=== PATIENT | female | born 1985 | race Caucasian/White ===

== ENCOUNTER → 2024-03-24 14:48 | Outpatient (REF) | payer OTHER, SELFPAY | LOC: PNTC 14:48 | PROVIDERS: ATTENDING PHYSICIAN Obstetrics & Gynecology | DX: O09.529 Supervision of elderly multigravida, unspecified trimester (principal); E06.3 Autoimmune thyroiditis; Q05.9 Spina bifida, unspecified; O34.219 Maternal care for unspecified type scar from previous cesarean delivery; R76.0 Raised antibody titer | CPT/HCPCS: 76816 ==

== ENCOUNTER → 2024-04-21 14:59 | Outpatient (REF) | payer OTHER, SELFPAY | LOC: PNTC 14:59 | PROVIDERS: ATTENDING PHYSICIAN Obstetrics & Gynecology | DX: O09.519 Supervision of elderly primigravida, unspecified trimester (principal); O99.280 Endocrine, nutritional and metabolic diseases complicating pregnancy, unspecified trimester; Z85.850 Personal history of malignant neoplasm of thyroid | CPT/HCPCS: 76816 ==

== ENCOUNTER 2024-05-09 12:46 | Observation (INO) | payer OTHER, SELFPAY ==
[2024-05-09 13:19] VITALS: BP 126/69; BMI 30.8
[2024-05-09] MEDS: LR 1000 IV (13:30)
[2024-05-09] MEDS: LR 500 IV (13:30)
[2024-05-09] MEDS: TYLENOL 1000 MG PO (13:47)
[2024-05-09 14:04] LABS: % Basophils 0.3 % (0-2); % Eosinophils 2.3 % (0-6); % Immature Granulocytes 0.9 % (0-0.5); % Lymphocytes 17.9 % (20.5-51.1); % Neutrophils 71.6 % (42.2-75.2); Absolute Eosinophils 0.2 10^3/uL (0-0.7); Absolute Immature Granulocytes 0.1 10^3/uL (0-0.05); Absolute Lymphocytes 1.4 10^3/uL (1.2-3.4); Absolute Monocytes 0.6 10^3/uL (0.1-0.6); Absolute Neutrophils 5.7 10^3/uL (1.4-6.5); Hematocrit 34.1 % (37.0-47.0); Hemoglobin 12.2 g/dL (12.0-16.0); Mean Corp Hgb Conc. 35.8 g/dL (33.0-37.0); Mean Corpuscular Hgb 31.9 pg (27.0-31.0); Mean Platelet Volume 11.6 fL (7.4-10.4); Nucleated Red Blood Cells % 0 %; Platelet Count 161 10^3/uL (130-400); Red Blood Cell Count 3.83 10^6/uL (4.20-5.40); Red Cell Dist. Width 13.4 % (11.5-14.5); White Blood Cell Count 7.9 10^3/uL (4.8-10.8)
[2024-05-09 14:16] LABS: ALT (SGPT) 18 U/L (0-35); AST (SGOT) 20 U/L (14-36); Albumin 3.4 g/dl (3.5-5.0); Alkaline Phosphatase 59 U/L (38-126); Blood Urea Nitrogen 11 mg/dl (7-17); Calcium 9.7 mg/dl (8.4-10.2); Carbon Dioxide 23 mmol/L (22-30); Chloride 105 mmol/L (98-107); Estimated Creatinine Clearance 120 ml/min; Glucose 111 mg/dl (70-99); Sodium 135 mmol/L (135-145); Total Bilirubin 0.6 mg/dl (0.2-1.3); Total Protein 6.1 g/dl (6.3-8.2); Uric Acid 4.1 mg/dl (2.5-6.2); eGFR > 60.00
[2024-05-09 14:28] LABS: Protein/creatinine Ratio 0.5; Urine Protein 13 mg/dl
[2024-05-09] MEDS: REGLAN 10 MG IV (14:38)
[2024-05-09 15:59] LABS: Urine Albumin Negative (Neg - Trace); Urine Bilirubin Negative (Negative); Urine Character Clear (Clear); Urine Color Yellow; Urine Glucose Negative (Negative); Urine Ketone Negative (Negative); Urine Leukocyte Negative (Negative); Urine Nitrite Negative (Negative); Urine Occult Blood Negative (Negative); Urine Urobilinogen Negative (Neg - 1+)
[2024-05-09] MEDS: MAXALT MLT (ORALLY DISINTEGRATING) 10 MG PO (15:59)
== END 2024-05-09 17:32 | disposition home or self-care (01) ==
LOC: LDRP 12:46
PROVIDERS: ADMITTING PHYSICIAN Obstetrics & Gynecology; FAMILY PHYSICIAN Family Medicine
DX: G43.909 Migraine, unspecified, not intractable, without status migrainosus (principal); R10.11 Right upper quadrant pain; Z3A.30 30 weeks gestation of pregnancy; O99.283 Endocrine, nutritional and metabolic diseases complicating pregnancy, third trimester; E06.3 Autoimmune thyroiditis; H53.8 Other visual disturbances; F90.9 Attention-deficit hyperactivity disorder, unspecified type; M32.9 Systemic lupus erythematosus, unspecified; Z86.19 Personal history of other infectious and parasitic diseases; Z88.1 Allergy status to other antibiotic agents; Z86.14 Personal history of Methicillin resistant Staphylococcus aureus infection
CPT/HCPCS: 80053; 81003; 82570; 84156; 84550; 85025; 86850; 86900; 86901; 87070; G0378

== ENCOUNTER 2024-05-15 13:19 | Observation (INO) | payer OTHER, SELFPAY ==
[2024-05-15 13:33] VITALS: BP 115/65; BMI 31.3
[2024-05-15 14:04] LABS: Hematocrit 36.4 % (37.0-47.0); Mean Corp Hgb Conc. 35.7 g/dL (33.0-37.0); Mean Corpuscular Hgb 32.3 pg (27.0-31.0); Mean Corpuscular Volume 90.3 fL (81.0-99.0); Mean Platelet Volume 11.4 fL (7.4-10.4); Platelet Count 182 10^3/uL (130-400); Red Blood Cell Count 4.03 10^6/uL (4.20-5.40); Red Cell Dist. Width 13.3 % (11.5-14.5); White Blood Cell Count 10.1 10^3/uL (4.8-10.8)
[2024-05-15] MEDS: MAXALT MLT (ORALLY DISINTEGRATING) 10 MG PO (14:04)
[2024-05-15 14:21] LABS: ALT (SGPT) 17 U/L (0-35); AST (SGOT) 17 U/L (14-36); Albumin 3.6 g/dl (3.5-5.0); Alkaline Phosphatase 70 U/L (38-126); Blood Urea Nitrogen 10 mg/dl (7-17); Carbon Dioxide 20 mmol/L (22-30); Chloride 104 mmol/L (98-107); Estimated Creatinine Clearance 121 ml/min; Glucose 92 mg/dl (70-99); Potassium 4.3 mmol/L (3.5-5.1); Sodium 136 mmol/L (135-145); Total Bilirubin 0.4 mg/dl (0.2-1.3); Total Protein 6.5 g/dl (6.3-8.2); eGFR > 60.00
[2024-05-15] MEDS: REGLAN 10 MG IV (15:05)
== END 2024-05-15 15:44 | disposition home or self-care (01) ==
LOC: LDRP 13:19
PROVIDERS: ADMITTING PHYSICIAN Obstetrics & Gynecology
DX: G43.909 Migraine, unspecified, not intractable, without status migrainosus (principal); H53.8 Other visual disturbances; R11.0 Nausea; O99.283 Endocrine, nutritional and metabolic diseases complicating pregnancy, third trimester; O36.8130 Decreased fetal movements, third trimester, not applicable or unspecified; O09.523 Supervision of elderly multigravida, third trimester; E06.3 Autoimmune thyroiditis; Z3A.31 31 weeks gestation of pregnancy; M32.9 Systemic lupus erythematosus, unspecified; F90.9 Attention-deficit hyperactivity disorder, unspecified type; O99.343 Other mental disorders complicating pregnancy, third trimester; F41.9 Anxiety disorder, unspecified; Z88.1 Allergy status to other antibiotic agents; Z86.14 Personal history of Methicillin resistant Staphylococcus aureus infection
CPT/HCPCS: 76818; 76816; 80053; 85027; G0378

== ENCOUNTER → 2024-05-19 15:10 | Outpatient (REF) | payer OTHER, SELFPAY | LOC: PNTC 15:10 | PROVIDERS: ATTENDING PHYSICIAN Obstetrics & Gynecology | DX: O09.529 Supervision of elderly multigravida, unspecified trimester (principal); O99.280 Endocrine, nutritional and metabolic diseases complicating pregnancy, unspecified trimester | CPT/HCPCS: 76816 ==

== ENCOUNTER → 2024-06-02 10:11 | Outpatient (REF) | payer OTHER, SELFPAY | LOC: PNTC 10:11 | PROVIDERS: ATTENDING PHYSICIAN Obstetrics & Gynecology | DX: O09.519 Supervision of elderly primigravida, unspecified trimester (principal); O99.280 Endocrine, nutritional and metabolic diseases complicating pregnancy, unspecified trimester | CPT/HCPCS: 59025; 76815 ==

== ENCOUNTER 2024-06-03 17:53 | Observation (INO) | payer OTHER, SELFPAY ==
[2024-06-03 18:06] VITALS: BP 120/76; BMI 32.6
[2024-06-03 19:34] LABS: Hematocrit 37.6 % (37.0-47.0); Hemoglobin 13.1 g/dL (12.0-16.0); Mean Corp Hgb Conc. 34.8 g/dL (33.0-37.0); Mean Corpuscular Hgb 31.7 pg (27.0-31.0); Mean Platelet Volume 10.8 fL (7.4-10.4); Platelet Count 158 10^3/uL (130-400); Red Blood Cell Count 4.13 10^6/uL (4.20-5.40); Red Cell Dist. Width 13.6 % (11.5-14.5); White Blood Cell Count 10.9 10^3/uL (4.8-10.8)
[2024-06-03 19:48] LABS: INR 0.88; PT 12.4 Sec (11.4-14.6)
[2024-06-03 19:49] LABS: Fibrinogen 421 MG/DL (199-459)
[2024-06-03] MEDS: TYLENOL 1000 MG PO (20:58)
[2024-06-04] MEDS: TYLENOL 1000 MG PO (04:57)
== END 2024-06-04 11:18 | disposition home or self-care (01) ==
LOC: LDRP 17:53
PROVIDERS: ADMITTING PHYSICIAN Obstetrics & Gynecology
DX: M79.671 Pain in right foot (principal); V49.49XA Driver injured in collision with other motor vehicles in traffic accident, initial encounter; Y93.89 Activity, other specified; Y92.413 State road as the place of occurrence of the external cause; R10.9 Unspecified abdominal pain; O09.523 Supervision of elderly multigravida, third trimester; Z3A.34 34 weeks gestation of pregnancy; O99.283 Endocrine, nutritional and metabolic diseases complicating pregnancy, third trimester; E06.3 Autoimmune thyroiditis; Q05.9 Spina bifida, unspecified; M32.9 Systemic lupus erythematosus, unspecified; F90.9 Attention-deficit hyperactivity disorder, unspecified type; Z86.19 Personal history of other infectious and parasitic diseases; Z88.1 Allergy status to other antibiotic agents; Z86.14 Personal history of Methicillin resistant Staphylococcus aureus infection
CPT/HCPCS: 73620; 76815; 85027; 85384; 85460; 85610; 85730; 86850; 86900; 86901; G0378

== ENCOUNTER → 2024-06-09 09:30 | Outpatient (REF) | payer OTHER, SELFPAY | LOC: PNTC 09:30 | PROVIDERS: ATTENDING PHYSICIAN Obstetrics & Gynecology | DX: E06.3 Autoimmune thyroiditis (principal); O9A.119 Malignant neoplasm complicating pregnancy, unspecified trimester; O09.529 Supervision of elderly multigravida, unspecified trimester | CPT/HCPCS: 59025; 76815 ==

== ENCOUNTER 2024-06-10 21:54 | Observation (INO) | payer OTHER, SELFPAY ==
[2024-06-10 22:06] VITALS: BMI 32.4
[2024-06-10] MEDS: LR 1000 IV ×2 (22:45→23:54)
[2024-06-10 22:55] VITALS: BP 104/57
[2024-06-10 23:34] LABS: Hematocrit 36.2 % (37.0-47.0); Hemoglobin 12.6 g/dL (12.0-16.0); Mean Corp Hgb Conc. 34.8 g/dL (33.0-37.0); Mean Corpuscular Hgb 31.5 pg (27.0-31.0); Mean Corpuscular Volume 90.5 fL (81.0-99.0); Mean Platelet Volume 11.3 fL (7.4-10.4); Platelet Count 172 10^3/uL (130-400); Red Cell Dist. Width 13.3 % (11.5-14.5)
[2024-06-10 23:40] LABS: ALT (SGPT) 16 U/L (0-35); AST (SGOT) 18 U/L (14-36); Albumin 3.5 g/dl (3.5-5.0); Alkaline Phosphatase 88 U/L (38-126); Blood Urea Nitrogen 13 mg/dl (7-17); Calcium 9.4 mg/dl (8.4-10.2); Carbon Dioxide 22 mmol/L (22-30); Chloride 104 mmol/L (98-107); Estimated Creatinine Clearance 124 ml/min; Glucose 89 mg/dl (70-99); Sodium 133 mmol/L (135-145); Total Bilirubin 0.5 mg/dl (0.2-1.3); Total Protein 6.3 g/dl (6.3-8.2); eGFR > 60.00
[2024-06-11] LABS: Urine Albumin Negative (Neg - Trace); Urine Bilirubin Negative (Negative); Urine Character Clear (Clear); Urine Color Yellow; Urine Glucose Negative (Negative); Urine Ketone Negative (Negative); Urine Leukocyte Negative (Negative); Urine Nitrite Negative (Negative); Urine Occult Blood Negative (Negative); Urine Urobilinogen Negative (Neg - 1+)
== END 2024-06-11 01:35 | disposition home or self-care (01) ==
LOC: LDRP 21:54
PROVIDERS: ADMITTING PHYSICIAN Obstetrics & Gynecology
DX: O47.03 False labor before 37 completed weeks of gestation, third trimester (principal); Z3A.35 35 weeks gestation of pregnancy; O09.523 Supervision of elderly multigravida, third trimester; O99.283 Endocrine, nutritional and metabolic diseases complicating pregnancy, third trimester; E06.3 Autoimmune thyroiditis; Z79.890 Hormone replacement therapy; Z88.1 Allergy status to other antibiotic agents
CPT/HCPCS: 80053; 81003; 85027; 86850; 86900; 86901; G0378

== ENCOUNTER → 2024-06-16 08:10 | Outpatient (REF) | payer OTHER, SELFPAY | LOC: PNTC 08:10 | PROVIDERS: ATTENDING PHYSICIAN Obstetrics & Gynecology | DX: O09.529 Supervision of elderly multigravida, unspecified trimester (principal); E06.3 Autoimmune thyroiditis; O99.280 Endocrine, nutritional and metabolic diseases complicating pregnancy, unspecified trimester | CPT/HCPCS: 59025; 76816 ==

== ENCOUNTER → 2024-06-24 07:59 | Outpatient (REF) | payer OTHER, SELFPAY | LOC: PNTC 07:59 | PROVIDERS: ATTENDING PHYSICIAN Obstetrics & Gynecology | DX: O09.519 Supervision of elderly primigravida, unspecified trimester (principal); O99.280 Endocrine, nutritional and metabolic diseases complicating pregnancy, unspecified trimester | CPT/HCPCS: 59025; 76815 ==

== ENCOUNTER → 2024-07-01 07:52 | Outpatient (REF) | payer OTHER, SELFPAY | LOC: PNTC 07:52 | PROVIDERS: ATTENDING PHYSICIAN Obstetrics & Gynecology | DX: O09.519 Supervision of elderly primigravida, unspecified trimester (principal); O99.280 Endocrine, nutritional and metabolic diseases complicating pregnancy, unspecified trimester; Z85.850 Personal history of malignant neoplasm of thyroid | CPT/HCPCS: 59025; 76815 ==

== ENCOUNTER 2024-07-06 05:34 | Inpatient (IN) | payer OTHER, SELFPAY ==
--- NOTE | 2024-07-05 12:43 | HPS.HSE ---
Family Physician
-
Family Physician: INTERVIEWE UNKNOWN - PT NOT
Chief Complaint
-
repeat
History of Present Illness
HPI: Patient is a 38yo with an EDC of 07/13 who will present for scheduled repeat section and bilateral salpingectomy on 07/06. She has no complaints. She denies contractions, VB or LOF. +FM.
ROS otherwise negative.
complications:
- Hx MRSA- culture negative 04/2024
- Proteinuria- 24hr urine 210
- Hx CSx2- wants bilateral salpingectomy
- Hypothyroidism- s/p thyroidectomy
- Advanced maternal age
- Spina bifida
- Lyme disease- received 30d of amoxicillin in January
- positive ANURADHA- follows w/ Rheum, no change in OB management
- LEEP- full term deliveries after
PMHx: ADHD, autoimmune disorder- +ANURADHA, thyroid disease, migraine
Meds: synthroid, zoloft
Surghx: appendectomy, CSx2, breast reduction, thyroidectomy, salivary gland removal, LEEP
All: erythromycin- anaphylaxis
Socialhx: denies tobacco, etoh, or illicit drug use
Famhx: mom w/ Graves
OBHx: CSx2, SABx5
labs: Blood type A+, Ab neg, Pap NILM neg HPV, rubella immune, RPR nonreactive, urine culture neg, HBsAg neg, HIV neg, GCCT neg, Hep C neg, A1C 5.2, NIPT neg, AFP neg, 1hr 124, GBS negative
Medical History
Past Medical History
Past Medical History: Reports Hypothyroidism
Past Surgical History: Reports Appendectomy and
Social History
Tobacco: Non-smoker
Alcohol: None
Drug: None
Family History
Family History: Not pertinent
Allergies / Home Medications
Allergies reflects when Allergies were last updated in [facility].
Home Medications with original date entered in [facility]
Allergy/Medication List:
Meds: synthroid, zoloft
All: erythromycin- anaphylaxis
Review of Systems
-
A 12 point ROS was completed and negative except as noted: Yes
Physical Exam
Physical Exam
General: Well Developed and Well Nourished
HEENT: NormoCephalic
Respiratory: Non Labored Respirations
Cardiac: Regular Rhythm
GI: Soft and Non Tender
Musculoskeletal: No Clubbing
Skin: Warm and Dry
Neuro: Awake and Alert
Psych: Calm
Impression/Plan
-
IMPRESSION:
Patient is a 38yo with an HERNESTO of 07/13 who presents for repeat section and bilateral salpingectomy
PLAN:
- Admission labs
- 2g of Ancef prior to incision for antibiotic prophylaxis
- Spinal anesthesia
- Patient counseled on risks of section and bilateral salpingectomy including bleeding, infection, damage to surrounding structures and need for future operations. She was also counseled on tubal regret and other alternate forms of
contraception. She is aware it is a permanent procedure and she will no longer be able to conceive children naturally. Consents were signed. She consented to a blood transfusion in case of emergency. Risks of transfusion reaction and infection with
blood transfusion discussed
[2024-07-06 05:37] VITALS: BMI 33.0
[2024-07-06 05:46] VITALS: BP 118/67
[2024-07-06] MEDS: LR 1000 IV ×2 (05:50→07:30)
[2024-07-06 06:38] LABS: Hematocrit 38.1 % (37.0-47.0); Hemoglobin 13.1 g/dL (12.0-16.0); Mean Corp Hgb Conc. 34.4 g/dL (33.0-37.0); Mean Corpuscular Hgb 31.7 pg (27.0-31.0); Mean Corpuscular Volume 92.3 fL (81.0-99.0); Mean Platelet Volume 11.9 fL (7.4-10.4); Platelet Count 163 10^3/uL (130-400); Red Blood Cell Count 4.13 10^6/uL (4.20-5.40); Red Cell Dist. Width 14.1 % (11.5-14.5); White Blood Cell Count 7.4 10^3/uL (4.8-10.8)
[2024-07-06] MEDS: BICITRA 30 ML PO (07:10)
[2024-07-06] MEDS: TYLENOL 1000 MG PO (07:10)
[2024-07-06] MEDS: ANCEF 10 IV (07:10)
[2024-07-06 09:14] LABS: Cord ABG Comment CORD BLOOD
[2024-07-06 09:18] LABS: B.E. Cord ABG -1.6 mMOL/L; O2 Saturation % Cord ABG 45.8 %; PCO2 Cord ABG 54 mmHg; PO2 Cord ABG 25 mmHg; pH Cord ABG 7.29
[2024-07-06 09:21] LABS: B.E. Cord ABG -3.1 mMOL/L; O2 Saturation % Cord ABG 15.5 %; PCO2 Cord ABG 65 mmHg; PO2 Cord ABG 14 mmHg; pH Cord ABG 7.21
[2024-07-06] MEDS: TORADOL 15 MG IV ×2 (15:13→21:29)
--- NOTE | 2024-07-06 17:47 | OR.RPT ---
Operative Report
Operative Report
Preop diagnosis: IUP @39.0, history section x2, desires permanent sterilization
Postop diagnosis: same, breech presentation
Procedure: Repeat low transverse section, bilateral salpingectomy
Surgeon: Carline
Anesthesia: Spinal Dr. Kothari
QBL: 255mL
Findings: Viable male born from complete breech presentation, with Apgars 8/8, weighing 8lb 3oz. Dense fascia with adhesions between rectus and fascia. Normal appearing uterus, fallopian tubes and ovaries.
Guardado: clear yellow
Complications: none
Counts correct times 2
Patient transferred to recovery in stable condition
Indication: Patient is a 38yo at 39.0 weeks who presented to Labor and Delivery for scheduled repeat section. She has a history of two prior sections. She has completed her family status and desires permanent sterilization.
She is aware it is a permanent procedure and she will no longer be able to conceive children naturally. Risks, benefits, and alternatives were discussed and consents were previously signed.
Procedure: Patient was taken to the operating room where spinal anesthesia was administered and found to be adequate. 2g of Ancef were given for infection prophylaxis. The abdomen was prepped with ChloraPrep. The patient was draped in the normal
sterile fashion. She was placed in the dorsal supine position with a left lateral tilt. A Pfannenstiel incision was made with a 10 blade and carried down to the fascia with a scalpel. Hemostasis achieved with Bovie. The fascia was incised and
dissected laterally with Fay scissors. The superior aspect of the fascia was grasped with Justin clamps. Adhesions between rectus and fascia noted. The underlying rectus fascia was sharply dissected with the Bovie and Fay scissors. In a similar
fashion the inferior aspect of the fascia was elevated with Justin clamps and the rectus muscle was dissected off with Fay scissors. The rectus muscles were down the midline to the level of the pubic symphysis with manual dissection. The
peritoneum was bluntly entered and extended with manual traction.
Razo retractor and bladder blade were placed revealing good visualization of the bladder. The vesicouterine peritoneum was identified. A thin lower uterine segment was noted. The lower uterine segment was incised with a scalpel. Clear amniotic
fluid noted at entry into the cavity. The uterine incision was extended bluntly with lateral and upward traction.
The fetus was in complete breech presentation. The feet were palpated and delivered gradually through the hysterotomy. Gentle fundal pressure was applied and the legs and body gradually delivered. Once the scapula could be seen, the baby was
gently rotated and both arms were delivered using the Lovset maneuver. Maintaining head flexion, the head delivered spontaneously. Delayed cord clamping was not performed per vendor analyst as was limp. The was handed off to the
vendor analyst. Cord gases and cord blood were collected. IV oxytocin was started to facilitate uterine contractions. The placenta was manually extracted. The uterus was exteriorized. Allis clamps were placed at the apices of the hysterotomy. The
inside of the uterus was wiped with a lap sponge to assure complete removal of placental membranes. Fundal massage was performed and uterus noted to be firm. The uterine incision was closed with 0 Vicryl in a running locked fashion. A horizontal
imbricating stitch was done on the hysterotomy. Oozing noted superior to the right apex of the hysterotomy. Two figure of eights were placed with 0 Vicryl to achieve hemostasis. The hysterotomy was inspected and noted to be hemostatic. Attention was
turned to the right fallopian tube. The right fallopian tube was followed out to the fimbriated end with Babcocks. The fallopian tube was removed in a stepwise fashion along the mesosalpinx using the Voyant device. Hemostasis was noted at the
salpingectomy site. The procedure was repeated on the left side and the left fallopian tube was removed using the Voyant device. Fallopian tubes were sent to pathology for evaluation. The uterus was placed back in the abdomen. Blood clots and fluid
were wiped out of the abdomen and pelvis with moist laparotomy sponges. The salpingectomy sites were inspected and noted to be hemostatic. The hysterotomy was examined again and was hemostatic.
The rectus muscles were inspected and noted to be hemostatic. The fascial layer was closed in a running continuous fashion using 0 Vicryl. The subcutaneous tissue was copiously irrigated and any small bleeding vessels were cauterized with Bovie
cautery. The subcutaneous tissue was reapproximated in a running continuous fashion with 2-0 Plain. The skin was closed with 4-0 Vicryl in a subcuticular fashion. The incision was covered with skin glue and a pressure dressing. The patient tolerated
the procedure well. All sponge and instrument counts were correct times two. The patient was taken to the recovery room in stable condition.
[2024-07-06] MEDS: MYLICON 80 MG PO (19:50)
[2024-07-06] MEDS: SENOKOT-S 1 TABLET PO (19:51)
[2024-07-06] MEDS: PRENATAL PLUS 1 TABLET PO (21:32)
[2024-07-07] MEDS: TYLENOL 650 MG PO ×2 (00:24→15:51)
[2024-07-07] MEDS: TORADOL 15 MG IV ×2 (03:24→09:00)
[2024-07-07] MEDS: MYLICON 80 MG PO (03:32)
[2024-07-07 04:12] LABS: Hemoglobin 12.4 g/dL (12.0-16.0); Mean Corp Hgb Conc. 33.5 g/dL (33.0-37.0); Mean Corpuscular Hgb 31.8 pg (27.0-31.0); Mean Corpuscular Volume 94.9 fL (81.0-99.0); Mean Platelet Volume 11.9 fL (7.4-10.4); Platelet Count 144 10^3/uL (130-400); Red Cell Dist. Width 14.4 % (11.5-14.5); White Blood Cell Count 11.9 10^3/uL (4.8-10.8)
[2024-07-07] MEDS: SYNTHROID 175 MCG PO (05:54)
[2024-07-07] MEDS: ZOLOFT 50 MG PO (09:00)
--- NOTE | 2024-07-07 10:04 | W.PN.ANS.POP ---
Anesthesia Post Operative
- Anesthesia Post Op Note
Vital Signs Stable-See Nursing Note: Yes
Airway Patent: Yes
Adequate Pain Control: Yes
Change in Mental Status: No
Current Postoperative Nausea & Vomiting: No
Anesthesia Complications: No
General Anesthetic Recall: No
Unplanned Admission: No
Post Op Hydration Adequate: Yes
[2024-07-07] MEDS: MOTRIN 600 MG PO ×2 (15:51→21:51)
[2024-07-07] MEDS: MAXALT MLT (ORALLY DISINTEGRATING) 10 MG PO (21:30)
[2024-07-07] MEDS: PRENATAL PLUS 1 TABLET PO (21:30)
[2024-07-07] MEDS: PERCOCET 5/325 1 TABLET PO (22:49)
[2024-07-08] MEDS: MOTRIN 600 MG PO ×2 (04:08→10:17)
[2024-07-08] MEDS: TYLENOL 650 MG PO (04:08)
[2024-07-08] MEDS: SYNTHROID 175 MCG PO (05:33)
[2024-07-08] MEDS: ZOLOFT 50 MG PO (08:12)
[2024-07-08] MEDS: PERCOCET 5/325 1 TABLET PO (10:18)
[2024-07-09 16:37] LABS: Syphilis/T. pallidum Ab Reflex Negative (Negative)
== END 2024-07-08 13:32 | disposition home or self-care (01) | DRG 785 ==
LOC: LDRP 05:34
PROVIDERS: Obstetrics & Gynecology; ADMITTING PHYSICIAN Student in an Organized Health Care Education/Training Program
PROC: 0UT70ZZ Resection of Bilateral Fallopian Tubes, Open Approach (ICD-10-PCS; 2024-07-06)
PROC: 10D00Z1 Extraction of Products of Conception, Low, Open Approach (ICD-10-PCS; 2024-07-06)
DX: O34.211 Maternal care for low transverse scar from previous cesarean delivery (principal); O64.1XX0 Obstructed labor due to breech presentation, not applicable or unspecified; Z3A.39 39 weeks gestation of pregnancy; Z37.0 Single live birth; O12.14 Gestational proteinuria, complicating childbirth; E89.0 Postprocedural hypothyroidism; O99.284 Endocrine, nutritional and metabolic diseases complicating childbirth; Q05.9 Spina bifida, unspecified; O75.89 Other specified complications of labor and delivery; Z30.2 Encounter for sterilization
CPT/HCPCS: 88302; 36415; 58605; 82803; 85027; 86780; 86850; 86900; 86901